=== PATIENT | female | born 1995 | race Caucasian/White ===

== ENCOUNTER 2019-04-28 18:25 | Emergency (ER) | payer OTHER, MEDICAID ==
[~2019-04-28] VITALS: Ht 160 cm; Wt 72.6 kg
[2019-04-28] MEDS ORDERED: TRAMADOL 50 MG50 MG PO (20:01)
[2019-04-28 20:19] VITALS: BP 122/81
== END 2019-04-28 20:19 | disposition home or self-care (01) ==
LOC: M.ERS 18:25
DX: M54.5 Low back pain (principal); F17.200 Nicotine dependence, unspecified, uncomplicated

== ENCOUNTER 2019-08-31 17:30 | Emergency (ER) | payer OTHER, MEDICAID ==
[~2019-08-31] VITALS: Ht 160 cm; Wt 74.8 kg
[~2019-08-31 17:30] MED LIST: TRAMADOL 50 MG50 MG PO
[2019-08-31 17:51] LABS: URINE BILIRUBIN NEGATIVE (Negative); URINE BLOOD TRACE (Negative); URINE COLOR YELLOW; URINE GLUCOSE-RANDOM NEGATIVE (Negative); URINE KETONES NEGATIVE (Negative); URINE LEUKOCYTES-REFLEX 1+ (Negative); URINE PROTEIN NEGATIVE (Negative); URINE UROBILINOGEN 0.2 E.U./dl (0.2-1.0)
[2019-08-31 17:52] LABS: URINE CLARITY HAZY; URINE NITRITE-REFLEX POSITIVE (Negative)
[2019-08-31 18:10] LABS: BACTERIA-REFLEX >30 Many /HPF (None Seen); MUCUS 4-6 Moderate strn/LPF (None Seen); SQUAMOUS >10 Many /LPF (0-3)
[2019-08-31 18:11] LABS: CASTS None Seen /LPF (None Seen); WBC CLUMPS Few (None Seen)
[2019-08-31 18:12] LABS: CRYSTALS None Seen /LPF (None Seen); URINE RBC 0-2 Rare /HPF (0-2)
[2019-08-31 18:57] VITALS: BP 111/67
== END 2019-08-31 18:57 | disposition left against medical advice (07) ==
LOC: M.ERS 17:30
PROVIDERS: Nurse Practitioner Family
DX: Z53.21 Procedure and treatment not carried out due to patient leaving prior to being seen by health care provider (principal)

== ENCOUNTER 2019-09-07 12:42 | Emergency (ER) | payer OTHER, MEDICAID ==
[~2019-09-07] VITALS: Ht 160 cm; Wt 74.8 kg
[2019-09-07] MEDS ORDERED: AUGMENTIN 875-1 EACH PO (12:57)
[2019-09-07 13:07] LABS: URINE BILIRUBIN NEGATIVE (Negative); URINE BLOOD NEGATIVE (Negative); URINE CLARITY CLEAR; URINE COLOR YELLOW; URINE GLUCOSE-RANDOM NEGATIVE (Negative); URINE KETONES NEGATIVE (Negative); URINE LEUKOCYTES-REFLEX TRACE (Negative); URINE NITRITE-REFLEX NEGATIVE (Negative); URINE PROTEIN NEGATIVE (Negative); URINE SPECIFIC GRAVITY 1.025 (1.005-1.030); URINE UROBILINOGEN 0.2 E.U./dl (0.2-1.0)
[2019-09-07 13:16] LABS: BACTERIA-REFLEX 1-9 Few /HPF (None Seen); CASTS None Seen /LPF (None Seen); CRYSTALS None Seen /LPF (None Seen); MUCUS None Seen strn/LPF (None Seen); SQUAMOUS >10 Many /LPF (0-3); URINE RBC 0-2 Rare /HPF (0-2); URINE WBC-REFLEX 0-5 Rare /HPF (0-5)
[2019-09-07 13:22] VITALS: BP 127/67
[2019-09-08] MEDS ORDERED: TRAMADOL 50 MG50 MG PO (22:07)
[2019-09-08] MEDS ORDERED: NABUMETONE 750750 M1 PO (22:07)
[2019-09-08] MEDS ORDERED: ONDANSETRON HCL4 M2 PO (22:07)
== END 2019-09-07 13:23 | disposition home or self-care (01) ==
LOC: M.ERS 12:42
PROVIDERS: Emergency Medicine Emergency Medical Services
DX: N39.0 Urinary tract infection, site not specified (principal)

== ENCOUNTER 2019-09-08 19:38 | Emergency (ER) | payer OTHER, MEDICAID ==
[~2019-09-08] VITALS: Ht 160 cm; Wt 74.8 kg
[~2019-09-08 19:38] MED LIST changes: +AUGMENTIN 875-1 EACH PO
[2019-09-08 20:02] LABS: URINE BILIRUBIN NEGATIVE (Negative); URINE BLOOD NEGATIVE (Negative); URINE CLARITY CLEAR; URINE COLOR YELLOW; URINE GLUCOSE-RANDOM NEGATIVE (Negative); URINE KETONES NEGATIVE (Negative); URINE LEUKOCYTES-REFLEX NEGATIVE (Negative); URINE NITRITE-REFLEX NEGATIVE (Negative); URINE PROTEIN NEGATIVE (Negative); URINE SPECIFIC GRAVITY <= 1.005 (1.005-1.030); URINE UROBILINOGEN 0.2 E.U./dl (0.2-1.0)
[2019-09-08 20:57] LABS: ABSOLUTE EOSINOPHILS 0.2 thou/uL (0.0-0.7); ABSOLUTE LYMPHOCYTES 2.5 thou/uL (0.8-5.3); ABSOLUTE MONOCYTES 0.4 thou/uL (0.0-1.2); ABSOLUTE NEUTROPHILS 4.5 thou/uL (1.6-8.1); BASOPHILS 0.3 %; EOSINOPHILS 2.1 %; HEMATOCRIT 40.9 % (37.0-47.0); HEMOGLOBIN 14.6 gm/dL (12.0-15.0); LYMPHOCYTES 32.9 %; MCH 32.2 pg (26.0-34.0); MCHC 35.8 g/dL (28.0-37.0); MCV 89.9 fL (80.0-100.0); MONOCYTES 5.6 %; MPV 7.6 fl. (7.2-11.1); NUCLEATED RBCS 0 /100WBC; PLATELET COUNT* 297 thou/uL (150-400); POLYS 59.1 %; RBC 4.55 mil/uL (4.20-5.00); RDW-CV 12.1 % (10.5-14.5); WBC 7.6 thou/uL (4.0-11.0)
[2019-09-08 21:08] LABS: CALCIUM 9.4 mg/dL (8.5-10.1); CREATININE 0.8 mg/dL (0.6-1.3); POTASSIUM 3.9 mmol/L (3.5-5.1)
[2019-09-08 21:13] LABS: ALBUMIN 4.4 g/dL (3.4-5.0); TOTAL BILIRUBIN 0.6 mg/dL (<0.1-1.0); TOTAL PROTEIN 8.1 g/dL (6.4-8.2)
[2019-09-08] MEDS ORDERED: ONDANSETRON HCL4 M2 PO (22:07)
[2019-09-08] MEDS ORDERED: TRAMADOL 50 MG50 MG PO (22:07)
[2019-09-08] MEDS ORDERED: NABUMETONE 750750 M1 PO (22:07)
[2019-09-08 22:36] VITALS: BP 132/62
== END 2019-09-08 22:36 | disposition home or self-care (01) ==
LOC: M.ERS 19:38
PROVIDERS: Nurse Practitioner Family
DX: R10.32 Left lower quadrant pain (principal); Z87.442 Personal history of urinary calculi